=== PATIENT | male | born 1995 | race Caucasian/White ===

== ENCOUNTER 2016-10-13 23:47 | Emergency (ER) | payer OTHER ==
--- NOTE | ~2016-10-13 | CT2 ---
[facility] A Service of [facility] & [facility] RADIOLOGY TEXT RESULTS PATIENT: SIERRA HERNANDEZ LOCATION: SED : 95 UNIT #: [id number] AGE: [address]: Dasha Puri SEX: M ORDER DR: [id number] [address] [address] [id number] MR#: [id number] Acc #: [id number] NAME: SIERRA HERNANDEZ : 1995 SEX: M STUDY DATE/TIME: 10/14/2016 0:52 UNIT: SED ROOM: STUDY DESCRIPTION: CT Abd and Pelv W Cont Attending Physician: Dasha Puri Pa-C Ordering Physician: Brian Teresa M.D. Primary Care Physician: Primary Care Physician No MEDICAL IMAGING REPORT This report is preliminary unless electronic signature is present. EXAM CT abdomen and pelvis with contrast INDICATIONS Abdominal pain, right lower quadrant pain which started earlier today. No comparison. TECHNIQUE Patient was given 100 mL of Isovue-370 and axial 5 mm images were obtained through the abdomen and pelvis with IV contrast. This CT exam was performed with one or more of the following radiation dose reduction techniques: Automatic exposure control, adjustment of mA and/or kV according to patient size, and iterative reconstruction. FINDINGS The lung bases are clear. The liver, gallbladder, spleen, pancreas, adrenal glands and kidneys are normal. The aorta is normal in size. There is no adenopathy. I believe the appendix is visible posterior to the cecum, best seen on image [id number]. There is a small appendicolith present, measuring about 5 mm in diameter. The appendix is about 9 mm in diameter. There is no definite inflammation but the wall seems to be slightly enhancing. The bladder and prostate gland are normal. The bones are unremarkable. IMPRESSION 1. I believe the patient has early appendicitis. The appendix lies posterior to the cecum and it is upper limits of normal in size. There seems to be some mild wall enhancement and there is a definite appendicolith present. There is no surrounding inflammation at this time. The appendix lies medial to the external iliac artery and vein. 2. Otherwise, the study is normal. STS. [facility] A Service of [facility] & [facility] RADIOLOGY TEXT RESULTS PATIENT: SIERRA HERNANDEZ LOCATION: SED : 95 UNIT #: [id number] AGE: [address]: Dasha Puri SEX: M ORDER DR: Dictated by... Edilberto Chaney M.D. THIS IS AN ELECTRONICALLY VERIFIED REPORT Edilberto Chaney M.D. at 10/14/2016 5:30 AM RADHA/sourav TD: 10/14/2016 03:53 JOB #: [id number] MEDICAL IMAGING REPORT Page 1 of 1
[2016-10-13] MEDS ORDERED: NO MEDICATIONS (23:49)
[2016-10-14 00:20] LABS: BASOPHIL% 0.3 % (0-2.5); EOSINOPHIL# 0.1 X10e3 (0-0.7); EOSINOPHIL% 1.1 % (0.0-7.0); HEMATOCRIT 43.2 % (38.0-50.0); HEMOGLOBIN 14.8 gm/dL (13.0-16.0); LYMPHOCYTE# 1.6 X10e3 (1.0-3.5); LYMPHOCYTE% 11.5 % (17.0-45.0); MEAN CELL VOLUME 85.3 FL (83-96); MEAN CORPUSCULAR HEMOGLOBIN 29.2 PG (28-34); MEAN CORPUSCULAR HGB CONC 34.2 g/dL (30-36); MEAN PLATELET VOLUME 7.7 FL (6.5-11.5); MONOCYTE# 1.3 X10e3 (0-1.0); MONOCYTE% 9.2 % (3.0-12.0); NEUTROPHIL# 10.8 X10e3 (1.5-7.1); NEUTROPHIL% 77.9 % (40-75); PLATELET COUNT 226 X10e3 (140-420); RED BLOOD COUNT 5.06 X10e (3.90-5.60); RED CELL DISTRIBUTION WIDTH 12.7 % (11.0-15.5); WHITE BLOOD COUNT 13.9 X10e3 (4.0-10.5)
[2016-10-14 00:24] LABS: DIFF IND NO
[2016-10-14 00:38] LABS: ALBUMIN SERUM 4.8 g/dL (3.5-5.0); BILIRUBIN,TOTAL 0.9 mg/dL (0.2-2.0); CALCIUM SERUM 9.2 mg/dL (8.4-10.2); GLOM FILT RATE Estimated 107.1 mL/min (>60); POTASSIUM 3.9 mmol/L (3.5-5.1); PROTEIN TOTAL SERUM 7.4 g/dL (6.0-8.3)
== END 2016-10-14 03:46 ==
LOC: SED 23:47
PROVIDERS: Physician Assistant
DX: K35.80 Unspecified acute appendicitis (principal)
CPT/HCPCS: 36415; 74177; 80053; 83690; 85025; 96361; 96365; 96372; 96375; 99284; J0500; J2405; J2543; Q9967